=== PATIENT | male | born 1975 | race Caucasian/White ===

== ENCOUNTER 2016-12-23 20:28 | Emergency (ER) | payer SELFPAY ==
--- NOTE | 2016-12-24 02:49 | ER ---
ADMIT: 12/23/2016 RM/LOC: ER [facility] MR#: [id number] [address] [address] MARCELO ESPINO [address] [place] [address] Emergency Room Report SEX: M AGE: 41 : 1975 DATE: 12/23/2016 The patient is a 41-year-old male, complaining of 4-hour history of right upper and lower quadrant abdominal pain associated with urgency. Denies any dysuria or vomiting. Does admit to chills and nausea. Exam remarkable for nontoxic, afebrile male. Moderate distress. Exquisitely tender right upper and lower quadrants. Bowel sounds active. Normal CBC, CMP, lipase, troponin, CRP, and lactic. Urine shows 8 wbc's, 18 rbc's, 1+ leukocyte esterase, and blood. CT abdomen and pelvis normal appendix. No bowel obstruction. Stool is noted in the sigmoid colon. Dismissed with instructions for irritable bowel syndrome, constipation type. Follow up Dr. Ríos as needed. Matthew Peters MD/ cha JOB #: [id number] CC: Matthew Peters MD, Attending Physician Cornelio Sellers MD, Family Physician Calin Ríos MD
== END 2016-12-23 23:38 | disposition home or self-care (01) ==
LOC: ER 20:28
DX: K58.1 Irritable bowel syndrome with constipation (principal); F17.210 Nicotine dependence, cigarettes, uncomplicated; F32.9 Major depressive disorder, single episode, unspecified; F41.9 Anxiety disorder, unspecified; Z79.899 Other long term (current) drug therapy; Z98.52 Vasectomy status